=== PATIENT | male | born 1995 | race Caucasian/White ===

== ENCOUNTER → 2018-05-11 10:35 | Outpatient (CLI) | payer OTHER, SELFPAY ==
--- NOTE | 2018-05-11 | DI.RAD.S_ITS ---
PROCEDURE: XR THORACIC SPINE 3V INDICATIONS: FUSED BACK THROACIC TECHNIQUE: 3 views of the thoracic spine were acquired. COMPARISON: None. FINDINGS: Bones: No fractures or dislocations. No suspicious bony lesions. 12 pairs of ribs are noted, and appear intact where visualized. Mild S-shaped scoliotic curvature is seen. Soft tissues: No paravertebral stripe thickening. IMPRESSION: Mild S-shaped scoliotic curvature noted. Specifically, no overt plain film findings spinal fusion are detected. Dictated by: Luke Alvarenga M.D. on 05/11/2018 at 11:05 Approved by: Luke Alvarenga M.D. on 05/11/2018 at 11:06
== END ==
DX: M54.6 Pain in thoracic spine (principal); M41.9 Scoliosis, unspecified
CPT/HCPCS: 72072